=== PATIENT | female | born 1970 | race Caucasian/White ===

== ENCOUNTER 2018-01-16 15:31 | Emergency (ER) | payer SELFPAY ==
--- NOTE | 2018-01-16 15:44 | ER Report ---
History and Physical Time Seen By MD: 15:44 (DONNELL LUNDBERG MD) HPI/ROS This is a 47-year-old female with a history of POTs disease. She recently moved to [place] from [place] and does not have a primary care physician yet. She presented to the emergency department with tachycardia and palpitations. She states that for the past few days she had left flank pain which migrated to her left pelvis. She was not eating or drinking due to the pain. She also had diarrhea for the past 2-3 days. She also reports abnormal vaginal discharge for the past few days. She says she feels dehydrated. She would not have come in for the pain but states she came in because of the tachycardia. She denies chest pain but states that she feels uncomfortable palpitations. No fever chills. No dysuria. She is sexually active and was last active 4 months ago. She does say that she uses condoms. Remainder of the 14 system rev: Yes (DONNELL LUNDBERG MD) Allergies: Coded Allergies: No Known Drug Allergies (Unverified , 01/16/18) Home Meds Active Scripts Fludrocortisone Acetate (FLUDROCORTISONE ACETATE) 0.1 Mg Tablet, 0.1 MG PO QDAY , #30 TAB 0 Refills Prov:TONIO PATRICIA MD 01/16/18 Amoxicillin (AMOXICILLIN) 500 Mg Capsule, 1 CAP PO Q8H, #15 CAPSULE 0 Refills Prov:TONIO PATRICIA MD 01/16/18 Reviewed Nurses Notes: Yes Old Medical Records Reviewed: Yes (DONNELL LUNDBERG MD) Hx Smoking: No Smoking Status: Never Smoker Exposure to Second Hand Smoke?: No Hx Substance Use Disorder: No Hx Alcohol Use: No (DONNELL LUNDBERG MD) Constitutional Vital Sign - Last 24 Hours 01/16/18 01/16/18 01/16/18 01/16/18 15:42 16:00 16:01 16:16 Temp 97.6 Pulse 138 135 127 Resp 22 34 34 B/P (MAP) 156/112 144/103 (117) Pulse Ox 97 97 97 O2 Delivery Room Air 01/16/18 01/16/18 01/16/18 01/16/18 16:31 16:46 17:01 17:06 Pulse 124 96 93 96 Resp 44 25 22 30 Pulse Ox 93 95 01/16/18 01/16/18 01/16/18 01/16/18 17:12 17:21 17:36 17:51 Temp 98.1 Pulse 92 105 108 Resp 20 22 28 Pulse Ox 96 98 97 01/16/18 01/16/18 01/16/18 01/16/18 18:06 18:11 18:26 18:41 Pulse 116 105 96 105 Resp 17 20 23 26 01/16/18 01/16/18 01/16/18 01/16/18 18:56 19:01 19:30 19:31 Pulse 99 99 101 Resp 17 13 B/P (MAP) 139/86 (103) Pulse Ox 96 96 96 01/16/18 01/16/18 01/16/18 01/16/18 19:45 19:46 20:00 20:01 Pulse 100 107 Resp 24 B/P (MAP) 141/74 (96) 117/74 (88) 133/74 (93) Pulse Ox 96 95 01/16/18 01/16/18 01/16/18 01/16/18 20:06 20:21 20:26 20:31 Pulse 89 105 102 113 Resp 14 14 18 19 Pulse Ox 96 97 96 96 01/16/18 01/16/18 01/16/18 01/16/18 21:01 21:16 21:31 21:46 Pulse 222 109 115 104 Resp 22 29 38 23 Pulse Ox 79 98 98 97 Intake and Output 01/16/18 01/16/18 01/17/18 15:00 23:00 07:00 Intake Total 3000 ml Balance 3000 ml (TONIO PATRICIA MD) Physical Exam General Appearance: The patient is alert, has no immediate need for airway protection and no current signs of toxicity. Eyes: Pupils equal and round no injection. Respiratory: Chest is non tender, lungs are clear to auscultation. Cardiac: tachycardic, regular rhythm Gastrointestinal: Abdomen is soft and non tender, no masses, bowel sounds normal. : copious white, watery discharge with left adnexal TTP Neck: Neck is supple and non tender. Extremities have full range of motion and are non tender. Skin: No rashes or lesions. DIFFERENTIAL DIAGNOSIS: After history and physical exam differential diagnosis was considered for STD, TOA, ruptured ovarian cyst, diverticulitis, colitis (DONNELL LUNDBERG MD) Medical Decision Making Data Points Result Diagram: 01/16/18 1635 01/16/18 1635 Laboratory Hematology Test 01/16/18 16:35 01/16/18 17:42 01/16/18 18:00 01/16/18 20:02 Red Blood Count 5.98 M/uL (4.17-5.56) Mean Corpuscular Volume 83.5 fL (80.0-96.0) Mean Corpuscular Hemoglobin 28.2 pg (26.0-33.0) Mean Corpuscular Hemoglobin Concent 33.7 g/dL (32.0-36.0) Red Cell Distribution Width 14.3 % (11.5-14.5) Mean Platelet Volume 8.7 fL (7.2-11.1) Neutrophils (%) (Auto) 81.4 % (39.4-72.5) Lymphocytes (%) (Auto) 13.0 % (17.6-49.6) Monocytes (%) (Auto) 4.7 % (4.1-12.4) Eosinophils (%) (Auto) 0.4 % (0.4-6.7) Basophils (%) (Auto) 0.5 % (0.3-1.4) Nucleated RBC Relative Count (auto) 0.0 /100WBC Neutrophils # (Auto) 12.9 K/uL (2.0-7.4) Lymphocytes # (Auto) 2.0 K/uL (1.3-3.6) Monocytes # (Auto) 0.7 K/uL (0.3-1.0) Eosinophils # (Auto) 0.1 K/uL (0.0-0.5) Basophils # (Auto) 0.1 K/uL (0.0-0.1) Nucleated RBC Absolute Count (auto) 0.00 K/uL Sodium Level 137 mmol/L (137-145) Potassium Level 3.7 mmol/L (3.5-5.0) Chloride Level 97 mmol/L (98-107) Carbon Dioxide Level 14 mmol/L (22-31) Blood Urea Nitrogen 13 mg/dl (7-18) Creatinine 1.00 mg/dl (0.52-1.04) Glomerular Filtration Rate Calc 60.0 Random Glucose 86 mg/dl (75-110) Calcium Level 9.7 mg/dl (8.4-10.2) Total Bilirubin 0.8 mg/dl (0.2-1.3) Aspartate Amino Transf (AST/SGOT) 33 U/L (0-35) Alanine Aminotransferase (ALT/SGPT) 31 U/L (0-56) Alkaline Phosphatase 120 U/L (0-126) Troponin I < 0.012 ng/ml Total Protein 9.5 gm/dl (6.3-8.2) Albumin 5.1 g/dl (3.5-5.0) Human Chorionic Gonadotropin, Qual Negative (NEGATIVE) Blood Gas Patient Temperature Unknown DEGREES Venous Blood pH 7.31 (7.31-7.41) Venous Blood Partial Pressure CO2 31 mmHg Venous Blood Partial Pressure O2 46 mmHg Venous Blood HCO3 15 mmol/L Venous Blood Oxygen Saturation 78 % Venous Blood Base Excess -11 mmol/L Oxygen Liters/Minute Unknown Lactate 1.4 mmol/L (0.7-2.1) Urine Color Yellow Urine Clarity Cloudy Urine pH 5.0 pH (4.8-9.5) Urine Specific [place] 1.020 Urine Protein 30 mg/dL (NEGATIVE) Urine Glucose (UA) Negative mg/dL (NEGATIVE) Urine Ketones 80 mg/dL (NEGATIVE) Urine Blood Small (NEGATIVE) Urine Nitrite Negative (NEGATIVE) Urine Bilirubin Negative (NEGATIVE) Urine Urobilinogen Negative mg/dL (0.2-1.9) Urine Leukocyte Esterase Small (NEGATIVE) Urine RBC 3 /HPF (0-2/HPF) Urine WBC 12 /HPF (0-5/HPF) Urine Squamous Epithelial Cells Many /LPF (</=FEW) Urine Bacteria Negative /HPF (NONE-FEW) Urine Hyaline Casts Many /LPF (NONE-FEW) Urine Granular Casts Few /LPF (NONE) Urine Mucus Few /HPF (NONE-FEW) Chemistry Test 01/16/18 16:35 01/16/18 17:42 01/16/18 18:00 01/16/18 20:02 White Blood Count 15.8 k/uL (4.5-11.0) Red Blood Count 5.98 M/uL (4.17-5.56) Hemoglobin 16.9 g/dL (12.0-16.0) Hematocrit 50.0 % (34.0-47.0) Mean Corpuscular Volume 83.5 fL (80.0-96.0) Mean Corpuscular Hemoglobin 28.2 pg (26.0-33.0) Mean Corpuscular Hemoglobin Concent 33.7 g/dL (32.0-36.0) Red Cell Distribution Width 14.3 % (11.5-14.5) Platelet Count 470 K/uL (150-450) Mean Platelet Volume 8.7 fL (7.2-11.1) Neutrophils (%) (Auto) 81.4 % (39.4-72.5) Lymphocytes (%) (Auto) 13.0 % (17.6-49.6) Monocytes (%) (Auto) 4.7 % (4.1-12.4) Eosinophils (%) (Auto) 0.4 % (0.4-6.7) Basophils (%) (Auto) 0.5 % (0.3-1.4) Nucleated RBC Relative Count (auto) 0.0 /100WBC Neutrophils # (Auto) 12.9 K/uL (2.0-7.4) Lymphocytes # (Auto) 2.0 K/uL (1.3-3.6) Monocytes # (Auto) 0.7 K/uL (0.3-1.0) Eosinophils # (Auto) 0.1 K/uL (0.0-0.5) Basophils # (Auto) 0.1 K/uL (0.0-0.1) Nucleated RBC Absolute Count (auto) 0.00 K/uL Glomerular Filtration Rate Calc 60.0 Calcium Level 9.7 mg/dl (8.4-10.2) Total Bilirubin 0.8 mg/dl (0.2-1.3) Aspartate Amino Transf (AST/SGOT) 33 U/L (0-35) Alanine Aminotransferase (ALT/SGPT) 31 U/L (0-56) Alkaline Phosphatase 120 U/L (0-126) Troponin I < 0.012 ng/ml Total Protein 9.5 gm/dl (6.3-8.2) Albumin 5.1 g/dl (3.5-5.0) Human Chorionic Gonadotropin, Qual Negative (NEGATIVE) Blood Gas Patient Temperature Unknown DEGREES Venous Blood pH 7.31 (7.31-7.41) Venous Blood Partial Pressure CO2 31 mmHg Venous Blood Partial Pressure O2 46 mmHg Venous Blood HCO3 15 mmol/L Venous Blood Oxygen Saturation 78 % Venous Blood Base Excess -11 mmol/L Oxygen Liters/Minute Unknown Lactate 1.4 mmol/L (0.7-2.1) Urine Color Yellow Urine Clarity Cloudy Urine pH 5.0 pH (4.8-9.5) Urine Specific [place] 1.020 Urine Protein 30 mg/dL (NEGATIVE) Urine Glucose (UA) Negative mg/dL (NEGATIVE) Urine Ketones 80 mg/dL (NEGATIVE) Urine Blood Small (NEGATIVE) Urine Nitrite Negative (NEGATIVE) Urine Bilirubin Negative (NEGATIVE) Urine Urobilinogen Negative mg/dL (0.2-1.9) Urine Leukocyte Esterase Small (NEGATIVE) Urine RBC 3 /HPF (0-2/HPF) Urine WBC 12 /HPF (0-5/HPF) Urine Squamous Epithelial Cells Many /LPF (</=FEW) Urine Bacteria Negative /HPF (NONE-FEW) Urine Hyaline Casts Many /LPF (NONE-FEW) Urine Granular Casts Few /LPF (NONE) Urine Mucus Few /HPF (NONE-FEW) Urinalysis Test 01/16/18 20:02 Urine Color Yellow Urine Clarity Cloudy Urine pH 5.0 pH (4.8-9.5) Urine Specific [place] 1.020 Urine Protein 30 mg/dL (NEGATIVE) Urine Glucose (UA) Negative mg/dL (NEGATIVE) Urine Ketones 80 mg/dL (NEGATIVE) Urine Blood Small (NEGATIVE) Urine Nitrite Negative (NEGATIVE) Urine Bilirubin Negative (NEGATIVE) Urine Urobilinogen Negative mg/dL (0.2-1.9) Urine Leukocyte Esterase Small (NEGATIVE) Urine RBC 3 /HPF (0-2/HPF) Urine WBC 12 /HPF (0-5/HPF) Urine Squamous Epithelial Cells Many /LPF (</=FEW) Urine Bacteria Negative /HPF (NONE-FEW) Urine Hyaline Casts Many /LPF (NONE-FEW) Urine Granular Casts Few /LPF (NONE) Urine Mucus Few /HPF (NONE-FEW) (TONIO PATRICIA MD) EKG/Imaging Monitor Interpretation: Sinus Tachycardia (DONNELL LUNDBERG MD) Imaging Transvaginal pelvic ultrasound INDICATION: Vaginal discharge. Left pelvic pain. COMPARISON: None Available FINDINGS: Uterus measures 10.6 x 4.6 x 5.8 cm. The uterus is minimally retroflexed. No focal abnormality. Double wall endometrial stripe measures 10.7 mm and homogeneous. No fluid or focal abnormality. There is no free fluid in the cul-de-sac. Urinary bladder is empty. Pelvic vessels appear unremarkable on this examination. Right ovary measures 2.4 x 2.1 x 1.8 cm and shows normal blood flow and contains several small follicles. Left ovary measures 2.3 x 1.8 x 1.1 cm and shows normal blood flow and contains several small follicles. No adnexal masses. IMPRESSION: 1. Unremarkable pelvic ultrasound. Report Dictated By: Anjum Lowry at 01/16/2018 8:10 PM EXAMINATION: CT abdomen with IV contrast CT pelvis with IV contrast HISTORY: Abdominal pain. COMPARISON: Pelvic ultrasound from the same day. TECHNIQUE: Axial images were taken through the abdomen and pelvis with intravenous contrast. Sagittal and coronal reformatted images are also submitted. CONTRAST: 75 mL of IV Isovue-370 One of the following dose optimization techniques was utilized in the performance of this exam: Automated exposure control; adjustment of the mA and/ or kV according to the patient's size; or use of an iterative reconstruction technique. Specific details can be referenced in the facility's radiology CT exam operational policy. FINDINGS: Liver/biliary: Postcholecystectomy. The liver is unremarkable. Pancreas: Negative. Spleen: Negative. Adrenal glands: Negative. Kidneys: Negative. Pelvic structures: Negative. Bowel: Colonic diverticulosis without evidence of diverticulitis. Normal appendix. The bowel is normal caliber without obvious focal wall thickening. Peritoneum/retroperitoneum/mesenteries: Negative. No intraperitoneal free air or free fluid. Vessels: Negative. Musculoskeletal/body wall: Slight retrolisthesis of L5 on S1 with mild bulging of the disc. Lymph node assessment: Negative. Lower chest: Negative. IMPRESSION: No CT evidence of acute pathology in the abdomen or pelvis. Colonic diverticulosis without evidence of diverticulitis. Report Dictated By: Gigi Crowley MD at 01/16/2018 9:31 PM (TONIO PATRICIA MD) ED Course/Re-evaluation ED Course 01/16/2018 6:43:39 pm This is a 47-year-old female who presents to the emergency department tachycardic with a leukocytosis and evidence of dehydration. She states that she has had left-sided flank pain which is now migrated to her left pelvis for the past 2-3 days also reports episodes of diarrhea for the past few days which have since resolved. She is tachycardic secondary to both dehydration and her POTs. She also has a bicarbonate of 14. Her pelvic exam is concerning for an STD so a vaginal ultrasound to evaluate for a TOA has been ordered. I have talked with Dr. Patricia about this patient. If the US is normal, I would get a CT scan to evaluate for colitis or diverticulitis. She is receiving her third L of fluids. Her tachycarida is improved. Would consider rechecking a BMP after the fluids to see if the bicarb has resolved. (DONNELL LUNDBERG MD) ED Course I assumed care of this patient at shift change from Dr. Lundberg. Ultrasound was negative for Tubo-ovarian abscess or other problems. Discussed this with the patient and then had a CT scan of the abdomen and pelvis with contrast done. This was negative as well. Urinalysis with changes suggesting urinary tract infection. Gave Azithromycin 1g oral dose and Rocephin 1g IV to cover gonorrhea and chlamydia as well as UTI and continuing with Amoxicillin until cultures are available. Also discussed POTS, and she had several episodes of tachycardia and shaking. She has tried beta-blockers in the past, but has never tried Fludrocortisone. We will start 0.1mg daily and she will continue to increase salt and fluid intake. Discussed that she need to see primary care for monitoring of this medication and repeat labs. We provided a list of primary care providers. Decision to Disposition Date: Jan 16, 2018 Decision to Disposition Time: 22:03 (TONIO PATRICIA MD) Depart Departure Latest Vital Signs Vital Signs Date Time Temp Pulse Resp B/P (MAP) Pulse Ox O2 Delivery O2 Flow Rate FiO2 01/16/18 21:46 104 23 97 01/16/18 20:01 133/74 (93) 01/16/18 17:12 98.1 01/16/18 15:42 Room Air (TONIO PATRICIA MD) Impression: Primary Impression: Urinary tract infection Additional Impression: POTS (postural orthostatic tachycardia syndrome) Condition: Improved Disposition: HOME OR SELF-CARE New Scripts Fludrocortisone Acetate (FLUDROCORTISONE ACETATE) 0.1 Mg Tablet 0.1 MG PO QDAY, #30 TAB 0 Refills Prov: TONIO PATRICIA MD 01/16/18 Amoxicillin (AMOXICILLIN) 500 Mg Capsule 1 CAP PO Q8H, #15 CAPSULE 0 Refills Prov: TONIO PATRICIA MD 01/16/18 Patient Instructions: Urinary Tract Infection in Women (ED) Additional Instructions: For the urinary tract infection, we will cover with antibiotics. The Azithromycin and Rocephin given in the ER should cover for possible vaginal and sexually transmitted bacteria. Continue with Amoxicillin 500mg three times a day for 5 days. For the POTS, we will start you on a medium dose of Fludrocortisone 0.1mg once a day in the morning. Increase salt and fluid intake as well. You will want to follow-up with primary care in the next 1-2 weeks for follow- up evaluation and labs to check your electrolytes. Problem Qualifiers Primary Impression: Urinary tract infection Urinary tract infection type: acute cystitis Hematuria presence: without hematuria Qualified Codes: N30.00 - Acute cystitis without hematuria DONNELL LUNDBERG MD Jan 16, 2018 15:44 TONIO PATRICIA MD Jan 16, 2018 19:55
[2018-01-16] MEDS ORDERED: NS(*) 0.9% 1000 ML BAG 1,000 ML IV ONE ×3 (16:15→18:15)
[2018-01-16] MEDS ORDERED: ONDANSETRON 4 MG/2 ML VIAL IVP ONE (16:15)
[2018-01-16 16:42] LABS: PLATELET COUNT, AUTOMATED 470 K/uL (150-450)
--- NOTE | 2018-01-16 18:59 | EKG ---
FACILITY: [facility] - [place] PATIENT NAME: HYUN GUTIÉRREZ : [id number] MR: [id number] V: [id number] EXAM DATE: ORDERING PHYSICIAN: DONNELL LUNDBERG TECHNOLOGIST: TIANA Test Reason : TACHYCARDIA Blood Pressure : / mmHG Vent. Rate : 110 BPM Atrial Rate : 110 BPM P-R Int : 144 ms QRS Dur : 090 ms QT Int : 348 ms P-R-T Axes : 054 037 026 degrees QTc Int : 470 ms Sinus tachycardia Probable left atrial enlargement Poor R wave progression anteriorly No previous ECGs available Confirmed by DANIEL CROOK ([id number]) on 01/17/2018 6:05:56 AM Referred By: TOÑO Confirmed By:DANIEL CROOK
[2018-01-16 20:01] VITALS: BP 133/74
--- NOTE | 2018-01-16 20:17 | RADIOLOGY IMAGING REPORT ---
FACILITY: [facility] - [place], [place] PATIENT NAME: Twyla Stoddard : 1970 MR: [id number] V: [id number] EXAM DATE: ORDERING PHYSICIAN: DONNELL LUNDBERG TECHNOLOGIST: [place] [facility] [place]: Twyla Stoddard : 1970 Visit/Account:[id number] Date of Sevice: 01/16/2018 Transvaginal pelvic ultrasound INDICATION: Vaginal discharge. Left pelvic pain. COMPARISON: None Available FINDINGS: Uterus measures 10.6 x 4.6 x 5.8 cm. The uterus is minimally retroflexed. No focal abnormality. Double wall endometrial stripe measures 10.7 mm and homogeneous. No fluid or focal abnormality. There is no free fluid in the cul-de-sac. Urinary bladder is empty. Pelvic vessels appear unremarkable on this examination. Right ovary measures 2.4 x 2.1 x 1.8 cm and shows normal blood flow and contains several small follic les. Left ovary measures 2.3 x 1.8 x 1.1 cm and shows normal blood flow and contains several small follicl es. No adnexal masses. IMPRESSION: 1. Unremarkable pelvic ultrasound. Report Dictated By: Anjum Lowry at 01/16/2018 8:10 PM Report E-Signed By: Anjum Lowry at 01/16/2018 8:13 PM WSN:[id number]
[2018-01-16] MEDS ORDERED: IOPAMIDOL 76% 75 ML INFUS BTL 75 ML ONE (20:43)
[2018-01-16] MEDS ORDERED: NS 0.9% 25 ML BAG 25 ML ONE (20:43)
[2018-01-16] MEDS ORDERED: HYDROmorphone* 1 MG/ML 1 MG/ML ML IVP ONE (21:35)
--- NOTE | 2018-01-16 21:45 | RADIOLOGY IMAGING REPORT ---
FACILITY: [facility] - [place] PATIENT NAME: Twyla Stoddard : 1970 MR: [id number] V: [id number] EXAM DATE: ORDERING PHYSICIAN: TONIO FISHER TECHNOLOGIST: [place] [facility] [place] Patient: Twyla Stoddard : 1970 Visit/Account:[id number] Date of Sevice: 01/16/2018 EXAMINATION: CT abdomen with IV contrast CT pelvis with IV contrast HISTORY: Abdominal pain. COMPARISON: Pelvic ultrasound from the same day. TECHNIQUE: Axial images were taken through the abdomen and pelvis with intravenous contrast. Sagitt al and coronal reformatted images are also submitted. CONTRAST: 75 mL of IV Isovue-370 One of the following dose optimization techniques was utilized in the performance of this exam: Autom ated exposure control; adjustment of the mA and/or kV according to the patient's size; or use of an i terative reconstruction technique. Specific details can be referenced in the facility's radiology C T exam operational policy. FINDINGS: Liver/biliary: Postcholecystectomy. The liver is unremarkable. Pancreas: Negative. Spleen: Negative. Adrenal glands: Negative. Kidneys: Negative. Pelvic structures: Negative. Bowel: Colonic diverticulosis without evidence of diverticulitis. Normal appendix. The bowel is gris l caliber without obvious focal wall thickening. Peritoneum/retroperitoneum/mesenteries: Negative. No intraperitoneal free air or free fluid. Vessels: Negative. Musculoskeletal/body wall: Slight retrolisthesis of L5 on S1 with mild bulging of the disc. Lymph node assessment: Negative. Lower chest: Negative. IMPRESSION: No CT evidence of acute pathology in the abdomen or pelvis. Colonic diverticulosis without evidence of diverticulitis. Report Dictated By: Gigi Crowley MD at 01/16/2018 9:31 PM Report E-Signed By: Gigi Crowley MD at 01/16/2018 9:42 PM WSN:[id number]
[2018-01-16] MEDS ORDERED: FLUD0.1T12 PO (22:05)
[2018-01-16] MEDS ORDERED: AMOX-362 PO (22:05)
[2018-01-16] MEDS ORDERED: AZITHROMYCIN 250 MG TAB PO ONE (22:05)
[2018-01-16] MEDS ORDERED: cefTRIAXone 1 GM VIAL IVP ONE (22:05)
== END 2018-01-16 22:48 | disposition home or self-care (01) ==
LOC: ER 15:34
DX: N30.00 Acute cystitis without hematuria (principal); I49.8 Other specified cardiac arrhythmias; E86.0 Dehydration
CPT/HCPCS: 74177; 76856; 81001; 82803; 83605; 84484; 84703; 85025; 87088; 87491; 87591; 93005; 96361; 96374; 96375; 99284; J0696; J1170; J2405; J7030; Q0144; Q9967; 82040; 82247; 82310; 82374; 82435; 82565; 82947; 84075; 84132; 84155; 84295; 84450; 84460; 84520